=== PATIENT | female | born 1985 | race Two or more races ===

== ENCOUNTER 2020-09-13 07:49 | Emergency (ER) | payer SELFPAY ==
[~2020-09-13] VITALS: Ht 165.1 cm; Wt 78.3 kg
--- NOTE | 2020-09-13 08:03 | NUR ---
PT STATES SHE IS 4 WEEKS , SPOTTING AND CRAMPING STARTING YESTERDAY. DR. MIRANDA AT BEDSIDE FOR EVALUATION. PT ATTACHED TO MONITOR. VSS. BARRIOS.
--- NOTE | 2020-09-13 08:08 | NUR ---
PT UP TO BATHROOM WITH STEADY GAIT
[2020-09-13 08:27] LABS: MICROSCOPIC NOT IND
--- NOTE | 2020-09-13 08:50 | NUR ---
PT TO US VIA JEFF.
--- NOTE | 2020-09-13 09:19 | NUR ---
PT RESTING IN BED WITH AT BEDSIDE. NADN. ENRIQUEZ.
--- NOTE | 2020-09-13 10:09 | NUR ---
PT UPSET AND CRYING. THIS RN ATTEMPTED TO PROVIDE EMOTIONAL SUPPORT. PT GIVEN MISCARRIGE COMFORT KIT.
--- NOTE | 2020-09-13 10:19 | NUR ---
pt to bathroom with steady gait
[2020-09-13 10:20] VITALS: BP 116/79
== END 2020-09-13 10:40 | disposition home or self-care (01) ==
LOC: ED 09:13
DX: O36.4XX0 Maternal care for intrauterine death, not applicable or unspecified (principal); R10.2 Pelvic and perineal pain; R50.9 Fever, unspecified; Z3A.08 8 weeks gestation of pregnancy
CPT/HCPCS: 36415; 76801; 81003; 84702; 86901; 99284

== ENCOUNTER 2020-09-16 02:52 | Emergency (ER) | payer SELFPAY ==
[~2020-09-16] VITALS: Ht 165.1 cm; Wt 75.0 kg
--- NOTE | 2020-09-16 03:00 | NUR ---
PT BIB [facility] FOR SPONTANEOUS AFTER A LOT OF VAGINAL BLEEDING. PT C/O PAIN TO LOWER ABDOMEN WITH LOTS OF CRAMPING. PT ADMITTED TO ER, AND PLACED ON CR MONITOR, AND HAS PIV 20 G TO LEFT AC PER EMS. PT RECEIVED 75MCG FENTANYL AND 4MG ZOFRAN IV, PER EMS.
[2020-09-16] MEDS ORDERED: ONDANSETRON 2MG/ML, 2ML ONE (03:12)
[2020-09-16] MEDS ORDERED: MORPHINE SULFATE 4 MG/ML, 1ML ONE (03:12)
[2020-09-16 03:30] LABS: BASOPHILS % (AUTO) 1 % (0-1); EOSINOPHILS % (AUTO) 1 % (1-7); LYMPHOCYTES % (AUTO) 15 % (22-44); MEAN CORPUSCULAR HEMOGLOBIN 30.7 pg (27.0-34.8); MEAN CORPUSCULAR HGB CONC 33.3 g/dL (32.4-35.8); MEAN PLATELET VOLUME 9.3 fL (7.4-10.4); MONOCYTES % (AUTO) 8 % (2-9); NEUTROPHILS % (AUTO) 76 % (42-75); PLATELET COUNT 260 x10^3/uL (130-400); RED BLOOD COUNT 3.76 x10^6/uL (3.82-5.3); RED CELL DISTRIBUTION WIDTH 14.2 % (9.6-15.2)
[2020-09-16] MEDS ORDERED: ONDANSETRON 2MG/ML, 2ML IVPush ONE (03:30)
[2020-09-16] MEDS ORDERED: MORPHINE SULFATE 4 MG/ML, 1ML IVPush PRN (03:30)
--- NOTE | 2020-09-16 03:32 | NUR ---
PT RECEIVED PAIN MEDS AND ANTI NAUSEA MEDS. AND PT TAKEN TO [facility].
--- NOTE | 2020-09-16 03:35 | NUR ---
PT STATES SHE IS STILL BLEEDING VAGINALLY AND HAS SOAKED THRU ONE PAD ALREADY. PAD CHANGED OUT AND MULTIPLE ONES BROUGHT TO BEDSIDE.
[2020-09-16 03:37] LABS: ALANINE AMINOTRANSFERASE 14 U/L (12-78); ALBUMIN 3.3 g/dL (3.4-5.0); ANION GAP 5 mmol/L (5-15); CALCIUM 8.3 mg/dL (8.5-10.1); CHLORIDE 109 mmol/L (98-107); CREATININE 0.57 mg/dL (0.55-1.02)
[2020-09-16 03:38] LABS: MD NO
[2020-09-16 03:41] LABS: ALKALINE PHOSPHATASE 60 U/L (45-117); BILIRUBIN,TOTAL 0.3 mg/dL (0.2-1.0); TOTAL PROTEIN 7.1 g/dL (6.4-8.2)
--- NOTE | 2020-09-16 03:51 | NUR ---
RN CALLED TO ROOM FOR ASSISTANCE, AND PT STATES SHE NEEDS TO CHANGE HER PAD AGAIN. THIS IS THE 2ND BLOOD SOAKED PAD PT HAS HAD TO CHANGE, AND SHE HAS SOAKED THRU ONTO THE BED. LINEN CHANGED AND NEW ABSORBANT PAD PLACED ON BED, AND PT GIVEN NEW PAD AND SWITCHED OUT HER PAD.
[2020-09-16 04:22] VITALS: BP 99/48
--- NOTE | 2020-09-16 04:26 | NUR ---
pt resting at this time, no acute distress or complaints at this time. Waiting on ultrasound to be read.
--- NOTE | 2020-09-16 05:11 | NUR ---
PT SLEEPING AT THIS TIME WHEN RN CHECKING ON HER. PT WOKE UP AND ASKED FOR HELP TO CHANGE HER MENSTRUAL PAD. PT HAS SOAKED THRU ANOTHER ONE AT THIS TIME. AND IT WAS REPLACED. AND THE ABSORBENT PAD UNDER PT, ALSO CHANGED, A LOT LESS SOAK THRU. MD AWARE. 3 PADS TOTAL HAVE SOAKED AND BEEN CHANGED. 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
[2020-09-16] MEDS ORDERED: KETOROLAC 30 MG/1 ML ONE (05:25)
--- NOTE | 2020-09-16 05:42 | NUR ---
PT AWAKE AND ALERT, AND COMPLAINS OF MILD PAIN TO ABDOMEN, AND STATES THAT THE CONTRACTIONS FEEL IF THEY ARE SUBSIDING SOME. PT CONTINUES WITH VAGINAL BLEEDING, BUT HAS DECREASED SIGNIFICANTLY. AT THIS TIME, PT CHANGED OUT HER PAD, AND IT WAS HALF MUCH BLOOD ON PAD PREVIOUS 2. PT FEELS COMFORTABLE FOR DISCHARGE AND HAS CALLED HER SIGNIFICANT OTHER TO COME PICK HER UP. PT OFFERED NON NARCOTIC PAIN MEDS, SHE REFUSED ANOTHER DOSE OF MORPHINE SULFATE, PT STATES THAT THEY MAKE HER SEVERLY NAUSEATED AND PREFERRED THE TORADOL WHEN ADVISED. MED GIVEN IV, PER EMAR AND READ BACK VERBAL ORDER TO MD. ORDERS PLACED FOR TORADOL.
[2020-09-16] MEDS ORDERED: KETOROLAC 30 MG/1 ML IVPush ONE (06:00)
--- NOTE | 2020-09-16 06:03 | NUR ---
PIV D/C'D AND CATH INTACT, AND PT TOLERATED WELL. PTS BOYFRIEND IS HERE TO PICK HER UP AND F/U AND D/C INSTRUCTIONS GIVEN TO PT AND SHE V/U. PT HAS MAXI PADS AND SOME ABSORBENT PADS TO GET HER HOME. PT D/C'D WITHOUT INCIDENT VIA WHEELCHAIR.
== END 2020-09-16 06:06 | disposition home or self-care (01) ==
LOC: ED 05:21
DX: O03.9 Complete or unspecified spontaneous abortion without complication (principal); R10.32 Left lower quadrant pain; R10.31 Right lower quadrant pain; Z3A.08 8 weeks gestation of pregnancy
CPT/HCPCS: 36415; 76801; 80053; 84702; 85025; 96374; 96375; 99284; J1885; J2270; J2405

== ENCOUNTER 2021-01-24 06:00 | Emergency (ER) | payer OTHER ==
[~2021-01-24] VITALS: Ht 165.1 cm; Wt 79.6 kg
[2021-01-24 06:16] VITALS: BP 130/88
--- NOTE | 2021-01-24 06:16 | NUR ---
PATIENT REPORTS HEAVY VAGINAL BLEEDING THIS AM WHEN SHE WOKE UP. UNKNOWN THE NUMBER OF PADS SHE IS GOING THROUGH THE PATIENT CAME STRAIGHT TO THE ED. PATIENT REPORTS THIS HAS HAPPENED THIS MONTH AND LAST MONTH BETWEEN MENSTRUAL CYCLES AND BLEEDING WITH INTERCOURSE. PATINET DENIES PAIN OR CRAMPING, ENDORCES NAUSEA.
[2021-01-24 06:46] LABS: BASOPHILS % (AUTO) 1 % (0-1); EOSINOPHILS % (AUTO) 2 % (1-7); LYMPHOCYTES % (AUTO) 31 % (22-44); MEAN CORPUSCULAR HEMOGLOBIN 30.6 pg (27.0-34.8); MEAN PLATELET VOLUME 9.2 fL (7.4-10.4); MONOCYTES % (AUTO) 12 % (2-9); NEUTROPHILS % (AUTO) 54 % (42-75); PLATELET COUNT 268 x10^3/uL (130-400); RED BLOOD COUNT 4.53 x10^6/uL (3.82-5.3); RED CELL DISTRIBUTION WIDTH 14.4 % (9.6-15.2)
--- NOTE | 2021-01-24 06:54 | NUR ---
REPORT FROM CHELI PALMA. [facility] US AT BEDSIDE WITH FEMALE BRIANNE OWENS.
[2021-01-24 06:57] LABS: ALBUMIN 3.3 g/dL (3.4-5.0); ANION GAP 4 mmol/L (5-15); CALCIUM 9.1 mg/dL (8.5-10.1); CHLORIDE 107 mmol/L (98-107)
== END 2021-01-24 07:54 | disposition home or self-care (01) ==
LOC: ED 06:03
DX: N92.4 Excessive bleeding in the premenopausal period (principal); N93.8 Other specified abnormal uterine and vaginal bleeding
CPT/HCPCS: 36415; 76830; 80048; 82040; 84703; 85025; 99284